=== PATIENT | female | born 1985 | race American Indian/Alaskan Native ===

== ENCOUNTER 2021-03-13 08:38 | Day surgery (SDC) | payer OTHER ==
--- NOTE | 2021-03-13 08:20 | Short Stay Summary ---
Short Stay Documentation Date of service: 03/13/21 Narrative H&P: 36y/o with a history of moderate cervical dysplasia. The patient underwent a colposcopy with findings of QING I/II on cervical biopsy. She has elected to proceed with surgical management. - History Principal diagnosis: Cervical dysplasia Past Medical History: No medical history Past Surgical History: No surgical history Social history: single - Allergies and Medications Current Medications: Allergies No Known Allergies Allergy (Unverified 03/06/21 12:54) Home Medications Medication Instructions Recorded Confirmed Last Taken Type No Known Home Medications [No 03/06/21 03/06/21 Unknown History Reported Home Medications] Active Medications Lactated Ringer's (Lactated Ringers) 1,000 mls @ 100 mls/hr IV DIRECT JACQUELIN Stop: 03/13/21 23:59 Midazolam HCl (Midazolam 2 Mg/2 Ml Inj) 2 mg IV PREOP NR Stop: 03/13/21 20:00 - Physical exam General appearance: no acute distress Integumentary: no rash HEENT: Atraumatic Lungs: Clear to auscultation Breasts: deferred Heart: Regular rate Gastrointestinal: normal Female Genitourinary: deferred Rectal Exam: deferred - Brief post op/procedure progress note Date of procedure: 03/13/21 Pre-op diagnosis: Cervical dysplasia Post-op diagnosis: same Procedure: Loop electrocautery excision procedure Endocervical curettage Anesthesia: GETA Surgeon: LILIAN RAMIREZ Estimated blood loss: 50-100ml Pathology: list (Ectocervix and endocervical tissue; endocervical curettings) Specimen disposition: to lab Condition: stable - Hospital course Hospital course: The patient was admitted the day of surgery and underwent a loop electrocautery excision procedure. Please see operative note for details of surgery. Her postoperative course was uneventful. - Disposition Condition at discharge: Good Disposition: [id number] TO HOME OR SELFCARE Short Stay Discharge Plan Activity: other (Pelvic rest for 4 weeks) Diet: regular Additional Instructions: Patient may follow-up with Dr. Ramirez in 4 weeks Prescriptions: Ibuprofen [Motrin] 800 mg PO Q8HR PRN #30 tablet PRN Reason: Pain , Severe (7-10) HYDROcodone/APAP 5-325 [[place] 5/325] 1 each PO Q6HR PRN #15 tablet PRN Reason: Pain
[~2021-03-13 08:38] MED LIST: LACTATED RINGERS 1,000 ML IV SCH
[2021-03-13] MEDS ORDERED: ceFAZolin/Water 2 GM/20 ML 2 GM/20 ML SYRINGE IV NR (09:00)
[2021-03-13] MEDS ORDERED: ONDANSETRON 4 MG/2 ML INJ IV PRN (09:31)
[2021-03-13] MEDS ORDERED: HYDROcodone/ACETAMINOPHEN 5-325 MG TAB PO PRN (09:31)
[2021-03-13] MEDS ORDERED: fentaNYL 100 MCG/2 ML INJ IV PRN (09:31)
--- NOTE | 2021-03-13 09:31 | Anesthesia Consultation ---
Anesthesia Consult and Med Hx Date of service: 03/13/21 - Airway Anesthetic Teeth Evaluation: Good ROM Head & Neck: Adequate Mental/Hyoid Distance: Adequate Mallampati Class: Class II Intubation Access Assessment: Probably Good - Pre-Operative Health Status ASA Pre-Surgery Classification: ASA1 Proposed Anesthetic Plan: General - Pulmonary Hx Smoking: No Hx Respiratory Symptoms: No - Cardiovascular System Hx Hypertension: No - Central Nervous System CVA: No - Endocrine Hx Renal Disease: No Hx Liver Disease: No Hx Insulin Dependent Diabetes: No Hx Non-Insulin Dependent Diabetes: No Hx Thyroid Disease: No - Other Systems Hx Obesity: Yes (BMI 32) - Additional Comments Anesthesia Medical History Comments: No hx anesthetic complications.
--- NOTE | 2021-03-13 09:31 | Anesthesia Day of Surgery ---
Anesthesia Day of Surgery - Day of Surgery Patient Examined: Yes Patient H&P Reviewed: Yes Patient is NPO: Yes
[2021-03-13] MEDS: MIDAZOLAM 2 MG/2 ML INJ IV NR ×2 (10:20→12:50)
[2021-03-13] MEDS ORDERED: propofoL 200 MG/20 ML VIAL IV ONE ×2 (13:20→13:41)
[2021-03-13] MEDS ORDERED: ONDANSETRON 4 MG/2 ML INJ ONE (13:20)
[2021-03-13] MEDS ORDERED: LIDOCAINE MPF (2%) 20 MG/1 ML VIAL 5 ML ONE (13:20)
[2021-03-13] MEDS ORDERED: fentaNYL 100 MCG/2 ML INJ ONE (13:20)
[2021-03-13] MEDS ORDERED: dexAMETHasone 20 MG/5 ML VIAL ONE (13:20)
[2021-03-13] MEDS ORDERED: FERRIC SUBSULFATE TOPICAL SOLN 8 ML TP ONE ×2 (13:23→14:00)
[2021-03-13] MEDS ORDERED: POTASSIUM IODIDE/IODINE (LUGOLS) 30 ML TP ONE ×2 (13:23→14:00)
[2021-03-13] MEDS ORDERED: LIDOCAINE 1%/EPINEPHRINE 1:100,000 VIAL (20 ML) INFILTRATI ONE ×2 (13:23→14:00)
[2021-03-13] MEDS ORDERED: SODIUM CHLORIDE 0.9% IRR 1,500 ML BOTTLE IR ONE (14:00)
--- NOTE | 2021-03-13 14:11 | Operative Report ---
Operative Report Operative Report: Date of procedure: March 13, 2021 Pre-operative diagnosis: Moderate cervical dysplasia Post-operative diagnosis: Same as above Procedure name(s): Loop electrocautery excision procedure; endocervical curettage Surgeon: Bonnie Delaney M.D. Estimated blood loss: Less than 100 mL Anesthesia: LMA Findings Multiparous cervix Indication: 36-year-old -0-0-2 with a history of moderate cervical dysplasia on cervical biopsy. The patient underwent a colposcopy that demonstrated evidence of cervical intraepithelial neoplasia grade 2 Procedure The patient was taken to the operating room. A timeout was performed that identified the patient's identity and the procedure. The patient was placed under LMA for anesthesia. She was prepped and draped in normal sterile fashion. The patient was placed in high lithotomy position. A coated bivalve speculum was placed in the patient's vagina after the bladder was drained. Lugol's solution was placed on the cervix. Paracervical block was performed with lidocaine containing epinephrine. A 20 x 12 mm loop was used to excise the ectocervix. An additional portion of the endocervix was removed with the loop. An endocervical curettage was then performed. The cervical bed was cauterized with the Bovie cautery. Monsel solution was placed on the cervical site. The vaginal instruments were then removed atraumatically. The patient was successfully extubated and taken to the recovery room in stable condition. All sponge laps and needle counts correct x2.
[2021-03-13 16:29] VITALS: BP 112/56
--- NOTE | 2021-03-13 16:41 | Post Anesthesia Evaluation ---
- Post Anesthesia Evaluation Patient Participated: Yes Airway Patent: Yes Stable Respiratory Function: Yes Nausea/Vomiting: No Temp > 96.8F: Yes Pain Manageable: Yes Adequeate Hydration: Yes Anesthesia Complications: No
== END 2021-03-13 15:48 | disposition home or self-care (01) ==
LOC: OR 08:38
PROVIDERS: ATTEND Obstetrics & Gynecology
DX: N87.1 Moderate cervical dysplasia (principal); E66.9 Obesity, unspecified; Z72.89 Other problems related to lifestyle; Z98.890 Other specified postprocedural states; Z68.32 Body mass index [BMI] 32.0-32.9, adult
CPT/HCPCS: 57522; 81025; 88305; 88307; J0690; J1100; J2250; J2405; J2704; J3010; J7120